=== PATIENT | male | born 1980 | race African-American/Black ===

== ENCOUNTER 2016-10-29 09:19 | Emergency (ER) | payer SELFPAY ==
[~2016-10-29] VITALS: Ht 170.2 cm; Wt 93.0 kg
[~2016-10-29 09:19] MED LIST: INSU100V13 SQ; METF500T4 PO
[2016-10-29] MEDS ORDERED: ONDANSETRON PF 4 MG/2 ML VIAL. IV ONE (10:15)
[2016-10-29] MEDS ORDERED: LIDO:MAALOX:DONNATAL 1:1:1 15 ML SINGLE DOSE SWSW ONE (10:15)
[2016-10-29 10:40] LABS: BASO % 0 % (0-3); EOS % 2 % (0-3); HEMATOCRIT 42.9 % (39.0-53.0); HEMOGLOBIN 14.6 g/dL (13.0-17.5); LYMPH # 2.9 x10^3/uL (1.0-4.8); LYMPH % 26 % (24-48); MEAN CORPUSCULAR HEMOGLOBIN 32 pg (25-35); MEAN CORPUSCULAR HGB CONC 34 g/dL (31-37); MEAN CORPUSCULAR VOLUME 94 fL (79-100); MONO % 9 % (0-9); NEUT % 63 % (31-73); PLATELET COUNT 243 x10^3/uL (140-400); RED BLOOD COUNT 4.58 x10^6/uL (4.30-5.70); RED CELL DISTRIBUTION WIDTH 13.4 % (11.5-14.5)
[2016-10-29 10:52] LABS: CALCIUM 8.5 mg/dL (8.5-10.1); CREATININE 1.1 mg/dL (0.7-1.3); GFR 92.2
[2016-10-29 10:59] LABS: ALBUMIN 3.6 g/dL (3.4-5.0); TOTAL PROTEIN 7.2 g/dL (6.4-8.2)
[2016-10-29 11:15] LABS: BILIRUBIN,URINE NEGATIVE (NEG); GLUCOSE,URINE NEGATIVE (NEG); NITRITE,URINE NEGATIVE (NEG); PROTEIN,URINE 30 mg/dL (NEG-TRACE)
[2016-10-29 11:18] LABS: BARBITURATES NEG (NEG); BENZODIAZEPINES NEG (NEG); CANNABINOIDS POS (NEG); COCAINE NEG (NEG); ETHANOL, URINE NEG (NEG); METHADONE NEG (NEG); OPIATES NEG (NEG); PHENCYCLIDINE NEG (NEG)
--- NOTE | 2016-10-29 11:20 | RAD ---
ACUTE ABDOMEN SERIES Clinical Indication: Abdominal pain and nausea for 3 days. Comparison: April 27, 2016. Technique: Portable upright AP view of the chest and upright and supine AP views of the abdomen are obtained. Findings: No focal consolidation, pleural effusion or pneumothorax is seen. Cardiomediastinal silhouette is within normal limits of size. No intra-abdominal free air or air-fluid levels are seen on the upright view. No dilated bowel loops are seen to suggest obstruction. Some formed fecal material is present. No significant renal calculi seen. Visualized osseous structures and surrounding soft tissues of the chest and abdomen demonstrate no acute finding. IMPRESSION: No radiographic evidence of an acute cardiopulmonary process. Nonobstructive appearing bowel gas pattern.
[2016-10-29 11:23] LABS: BACTERIA,URINE 0 /HPF (0-FEW); RBC,URINE 0 /HPF (0-2); WBC,URINE 0 /HPF (0-4)
[2016-10-29 11:33] VITALS: BP 140/91
[2016-10-29] MEDS ORDERED: ONDA4TAB7 PO (12:00)
--- NOTE | 2016-10-29 12:12 | EKG ---
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
--- NOTE | 2016-10-29 14:01 | ED.ADGEN ---
Past Medical History Past Medical History: Depression, Diabetes-Type II, Other Additional Past Medical Histor: BORDERLINE HTN Past Surgical History: No Surgical History Alcohol Use: None Drug Use: Marijuana Adult General Chief Complaint Chief Complaint: ABDOMINAL PAIN HPI HPI Patient is a 36 year old man, history of hypertension, type 2 diabetes mellitus that is diet controlled, depression, who presents to the emergency department with complaint of abdominal pain and constipation. Patient states that he began feeling nauseous last night, he states that he has not had developed for the past 2 days. States that he is experiencing cramping abdominal pain. No vomiting, no diarrhea, states the pain is located in the upper quadrants is admitted in the middle of his abdomen. He has not taken any medications prior to coming to the ED. Denies any sick contacts or bad food exposures. 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 No fevers or chills, no weakness, numbness or tingling, no chest pain or shortness of breath. Patient states that his diabetes is diet- controlled, Accu-Chek is 161 upon arrival to the emergency department. Patient concerned that his sugar was high, causing the pain. Review of Systems Review of Systems Constitutional: Denies fever or chills. [] Eyes: Denies change in visual acuity. [] HENT: Denies nasal congestion or sore throat. [] Respiratory: Denies cough or shortness of breath. [] Cardiovascular: Denies chest pain or edema. [] GI: Cramping abdominal pain associated with nausea, no vomiting, no bloody stools or diarrhea. Positive for constipation. : Denies dysuria. [] Musculoskeletal: Denies back pain or joint pain. [] Integument: Denies rash. [] Neurologic: Denies headache, focal weakness or sensory changes. [] Endocrine: Denies polyuria or polydipsia. [] Lymphatic: Denies swollen glands. [] Psychiatric: Denies depression or anxiety. [] Current Medications Current Medications Current Medications Medications (Trade) Dose Ordered Sig/Jennifer Start Time Stop Time Status Last Admin Dose Admin Multi-Ingredient Mouthwash/Gargle (Gi Cocktail Single Dose) 15 ml 1X ONCE 10/29/16 10:15 10/29/16 10:16 DC 10/29/16 10:28 15 ML Ondansetron HCl (Zofran) 4 mg 1X ONCE 10/29/16 10:15 10/29/16 10:16 DC 10/29/16 10:29 4 MG Allergies Allergies Allergies Coded Allergies Type Severity Reaction Last Updated Verified No Known Drug Allergies 12/09/15 No Physical Exam Physical Exam Constitutional: Well developed, well nourished, no acute distress, non-toxic appearance. [] HENT: Normocephalic, atraumatic, bilateral external ears normal, oropharynx moist, no oral exudates, nose normal. [] Eyes: PERRLA, EOMI, conjunctiva normal, no discharge. [] Neck: Normal range of motion, no tenderness, supple, no stridor. [] Cardiovascular:Heart rate regular rhythm, no murmur [] Lungs & Thorax: Bilateral breath sounds clear to auscultation [] Abdomen: Bowel sounds normal, soft, no tenderness, no masses, no pulsatile masses. [] Skin: Warm, dry, no erythema, no rash. [] Back: No tenderness, no CVA tenderness. [] Extremities: No tenderness, no cyanosis, no clubbing, ROM intact, no edema. [] Neurologic: Alert and oriented X 3, normal motor function, normal sensory function, no focal deficits noted. [] Psychologic: Affect normal, judgement normal, mood normal. [] Current Patient Data Vital Signs Vital Signs Date Time Temp Pulse Resp B/P Pulse Ox O2 Delivery O2 Flow Rate FiO2 10/29/16 10:05 90 18 149/84 97 Room Air 10/29/16 09:28 98.2 98.2 Lab Values Laboratory Tests Test 10/29/16 09:28 10/29/16 10:05 10/29/16 10:45 Glucose (Fingerstick) 161mg/dL (70-99) H White Blood Count 11.0x10^3/uL (4.0-11.0) Red Blood Count 4.58x10^6/uL (4.30-5.70) Hemoglobin 14.6g/dL (13.0-17.5) Hematocrit 42.9% (39.0-53.0) Mean Corpuscular Volume 94fL (79-100) Mean Corpuscular Hemoglobin 32pg (25-35) Mean Corpuscular Hemoglobin Concent 34g/dL (31-37) Red Cell Distribution Width 13.4% (11.5-14.5) Platelet Count 243x10^3/uL (140-400) Neutrophils (%) (Auto) 63% (31-73) Lymphocytes (%) (Auto) 26% (24-48) Monocytes (%) (Auto) 9% (0-9) Eosinophils (%) (Auto) 2% (0-3) Basophils (%) (Auto) 0% (0-3) Neutrophils # (Auto) 6.9x10^3uL (1.8-7.7) Lymphocytes # (Auto) 2.9x10^3/uL (1.0-4.8) Monocytes # (Auto) 0.9x10^3/uL (0.0-1.1) Eosinophils # (Auto) 0.2x10^3/uL (0.0-0.7) Basophils # (Auto) 0.0x10^3/uL (0.0-0.2) Sodium Level 142mmol/L (136-145) Potassium Level 4.0mmol/L (3.5-5.1) Chloride Level 105mmol/L (98-107) Carbon Dioxide Level 26mmol/L (21-32) Anion Gap 11 (6-14) Blood Urea Nitrogen 15mg/dL (8-26) Creatinine 1.1mg/dL (0.7-1.3) Estimated GFR (Cockcroft-Gault) 92.2 BUN/Creatinine Ratio 14 (6-20) Glucose Level 138mg/dL (70-99) H Calcium Level 8.5mg/dL (8.5-10.1) Total Bilirubin 1.0mg/dL (0.2-1.0) Aspartate Amino Transferase (AST) 21U/L (15-37) Alanine Aminotransferase (ALT) 31U/L (16-63) Alkaline Phosphatase 71U/L (46-116) Total Protein 7.2g/dL (6.4-8.2) Albumin 3.6g/dL (3.4-5.0) Albumin/Globulin Ratio 1.0 (1.0-1.7) Lipase 121U/L (73-393) Urine Collection Type Unknown Urine Color Yellow Urine Clarity Clear Urine pH 6.0 Urine Specific [place] 1.025 Urine Protein 30mg/dL (NEG-TRACE) Urine Glucose (UA) Negativemg/dL (NEG) Urine Ketones (Stick) Negativemg/dL (NEG) Urine Blood Negative (NEG) Urine Nitrite Negative (NEG) Urine Bilirubin Negative (NEG) Urine Urobilinogen Dipstick 1.0mg/dL (0.2 mg/dL) Urine Leukocyte Esterase Negative (NEG) Urine RBC 0/HPF (0-2) Urine WBC 0/HPF (0-4) Urine Squamous Epithelial Cells None/LPF Urine Amorphous Sediment Present/HPF Urine Bacteria 0/HPF (0-FEW) Urine Opiates Screen Neg (NEG) Urine Methadone Screen Neg (NEG) Urine Barbiturates Neg (NEG) Urine Phencyclidine Screen Neg (NEG) Urine Amphetamine/Methamphetamine Neg (NEG) Urine Benzodiazepines Screen Neg (NEG) Urine Cocaine Screen Neg (NEG) Urine Cannabinoids Screen Pos (NEG) Urine Ethyl Alcohol Neg (NEG) Laboratory Tests 10/29/16 10:05 Laboratory Tests 10/29/16 10:05 EKG EKG ECG: [] Rhythm strip: Heart rate 90 bpm, sinus rhythm, no ectopy. As interpreted by me. Radiology/Procedures Radiology/Procedures [][facility] [address] [place] [address] IMAGING REPORT Signed PATIENT: FLORENCE SALGUERO ACCOUNT: [id number] : 1980 LOCATION: ER AGE: 36 SEX: M EXAM STATUS: REG ER ORD. PHYSICIAN: GILBERTO STEVENS DO REASON: abd pain PROCEDURE: ACUTE ABDOMEN SERIES ACUTE ABDOMEN SERIES Clinical Indication: Abdominal pain and nausea for 3 days. Comparison: April 27, 2016. Technique: Portable upright AP view of the chest and upright and supine AP views of the abdomen are obtained. Findings: No focal consolidation, pleural effusion or pneumothorax is seen. Cardiomediastinal silhouette is within normal limits of size. No intra-abdominal free air or air-fluid levels are seen on the upright view. No dilated bowel loops are seen to suggest obstruction. Some formed fecal material is present. No significant renal calculi seen. Visualized osseous structures and surrounding soft tissues of the chest and abdomen demonstrate no acute finding. IMPRESSION: No radiographic evidence of an acute cardiopulmonary process. Nonobstructive appearing bowel gas pattern. DICTATED and SIGNED BY: JANEL BONILLA MD DATE: 10/29/16 1116 CC: GILBERTO STEVENS DO; MARCEL DINH MD ~ Course & Med Decision Making Course & Med Decision Making Pertinent Labs and Imaging studies reviewed. (See chart for details) Patient's laboratory studies are reveal any evidence acutely concerning findings , x-rays consistent with constipation. No evidence of obstruction. On reevaluation after receiving GI cocktail, patient is resting comfortably. Nausea is resolved. Did discuss importance of high-fiber diet, and stay well- hydrated with patient, patient voiced understanding and agreement. Discharged home with recognition the stated, with clear and detailed return instructions. Dragon Disclaimer Dragon Disclaimer This electronic medical record was generated, in whole or in part, using a voice recognition dictation system. Departure Impression: Primary Impression: Constipation Additional Impressions: Nausea Abdominal pain Disposition: 01 HOME, SELF-CARE Condition: IMPROVED Scripts Ondansetron Hcl (Zofran)4 Mg Tablet1 Tab PO Q8HRS PRN NAUSEA #12 TAB Prov:GILBERTO STEVENS DO 10/29/16 Problem Qualifiers GILBERTO STEVENS DO Oct 29, 2016 14:01
== END 2016-10-29 12:25 | disposition home or self-care (01) ==
LOC: ER 09:19
DX: K59.00 Constipation, unspecified (principal); I10 Essential (primary) hypertension; F32.9 Major depressive disorder, single episode, unspecified; E11.9 Type 2 diabetes mellitus without complications; F12.10 Cannabis abuse, uncomplicated
CPT/HCPCS: 36415; 74022; 80053; 80305; 80320; 81001; 82947; 83690; 85027; 93005; 96374; 99285; J2405; G0481

== ENCOUNTER 2018-02-05 06:35 | Emergency (ER) | payer SELFPAY ==
[2018-02-05] MEDS: ORPHENADRINE CITRATE 60 MG/2 ML VIAL. IM (07:37)
[2018-02-05] MEDS: KETOROLAC 60 MG/2 ML INJ. IM (07:37)
[2018-02-05] MEDS: LIDOCAINE (700MG/PATCH) PATCH. TD (07:37)
== END 2018-02-05 07:50 | disposition home or self-care (01) ==
LOC: ER 06:35
DX: S29.012A Strain of muscle and tendon of back wall of thorax, initial encounter (principal); M54.12 Radiculopathy, cervical region; E11.9 Type 2 diabetes mellitus without complications; X58.XXXA Exposure to other specified factors, initial encounter; Y93.89 Activity, other specified; Y92.89 Other specified places as the place of occurrence of the external cause; Y99.8 Other external cause status
CPT/HCPCS: 96372; 99284; J1885; J2360

== ENCOUNTER 2019-01-26 16:18 | Emergency (ER) | payer SELFPAY ==
[~2019-01-26] VITALS: Ht 167.6 cm; Wt 97.5 kg
[~2019-01-26 16:18] MED LIST changes: +INSU100V3 SQ; +LISI2.5T PO; +METF500T16 PO; -METF500T4 PO; +NAPR-514 PO; +ONDA4TAB7 PO; +ORPH100T PO
[2019-01-26 16:57] VITALS: BP 133/87
--- NOTE | 2019-01-26 17:22 | RAD ---
SHOULDER BILAT 2+V History: Pain after a fall. 3 view right shoulder No evidence of acute fracture. No aggressive bone destruction. Joint spaces intact without dislocation. Three-view left shoulder No evidence of acute fracture. Joint spaces intact without dislocation. The outer left clavicle demonstrates ill-definition of the subchondral margin, could indicate resorption or osteolysis. IMPRESSION: 1. No evidence of acute fracture or dislocation of either shoulder. 2. Ill-definition of the subchondral bone at the outer left clavicle. This is compatible with bone resorption or osteolysis. This can be seen with repetitive stress injury or posttraumatic osteolysis, assuming there is not clinical concern for infectious etiology. Electronically signed by: Miguelito Palacios MD (01/26/2019 5:19 PM) [facility]
--- NOTE | 2019-01-26 18:18 | RAD ---
CT C-Spine without contrast: Clinical History: Technique: Axial helical images of the cervical spine were obtained without contrast, axial coronal and sagittal reconstruction was performed. Findings: There is no loss of vertebral body stature. There is no prevertebral soft tissue swelling. The vertebral bodies are well aligned. The C1-C2 relationship is normal. The visualized osseous structures appear normal. There is straightening of the normal cervical lordosis which can be positional or can be secondary to muscle spasm. Evaluation of the central canal is limited without contrast. There is facet arthropathy at C3-C4 on the left. Impression: Straightening of the normal cervical doses could be positional or could be secondary to muscle spasm. Otherwise no CT evidence of acute fracture or malalignment. Clinical correlation suggested. PQRS Compliance Statement: One or more of the following individualized dose reduction techniques were utilized for this examination: 1. Automated exposure control 2. Adjustment of the mA and/or kV according to patient size 3. Use of iterative reconstruction technique Electronically signed by: Anthony Molina III, MD (01/26/2019 6:15 PM) [facility]
[2019-01-26] MEDS ORDERED: DICL50TA4 PO (18:36)
[2019-01-26] MEDS ORDERED: CYCL10TA2 PO (18:36)
--- NOTE | 2019-01-26 18:36 | PHYS DOC ---
Past Medical History Past Medical History: Diabetes-Type II Additional Past Medical Histor: BORDERLINE HTN (CRISTIANOAMANDA APRN) Past Surgical History: No Surgical History (AMANDA QUINONEZ APRN) Alcohol Use: None Drug Use: None (CRISTIANOAMANDA APRN) Adult General Chief Complaint Chief Complaint: BACK PAIN - NO INJURY HPI HPI Patient is a 38 year old male with history of diabetes type 2, pre- hypertension, who presents to the ED today complaining of 9 out of 10 lateral shoulder pain as well as neck pain that began 4 days ago after he fell, he states he was playing with his daughter when he tripped and fell. Denies any loss of consciousness, denies hitting his head on the ground. States the pain is worse on touching the neck. Denies anything specifically relief. Describes the pain as sharp and intermittent. (TIMAMANDA Lawrence APRN) Review of Systems Review of Systems Constitutional: Denies fever or chills [] Eyes: Denies change in visual acuity, redness, or eye pain [] HENT: Denies nasal congestion or sore throat [] Respiratory: Denies cough or shortness of breath [] Cardiovascular: No additional information not addressed in HPI [] GI: Denies abdominal pain, nausea, vomiting, bloody stools or diarrhea [] : Denies dysuria or hematuria [] Musculoskeletal: Reports neck pain, bilateral shoulder pain Integument: Denies rash or skin lesions [] Neurologic: Denies headache, focal weakness or sensory changes [] All other systems were reviewed and found to be within normal limits, except as documented in this note. (AMANDA QUINONEZ APRN) Allergies Allergies Allergies Coded Allergies Type Severity Reaction Last Updated Verified No Known Drug Allergies 12/09/15 No (WOODROW FRANCIS MD) Physical Exam Physical Exam Constitutional: Well developed, well nourished, no acute distress, non-toxic appearance. [] HENT: Normocephalic, atraumatic, bilateral external ears normal, oropharynx moist, no oral exudates, nose normal. [] Eyes: PERRLA, EOMI, conjunctiva normal, no discharge. [] Neck: Normal range of motion, diffuse paraspinal muscle tenderness to bilateral cervical spine, no midline cervical spine tenderness, supple, no stridor. [] Cardiovascular:Heart rate regular rhythm, no murmur [] Lungs & Thorax: Bilateral breath sounds clear to auscultation [] Abdomen: Bowel sounds normal, soft, no tenderness, no masses, no pulsatile masses. [] Skin: Warm, dry, no erythema, no rash. [] Back: No tenderness, no CVA tenderness. [] Extremities: No tenderness, no cyanosis, no clubbing, ROM intact, no edema. [] Neurologic: Alert and oriented X 3, normal motor function, normal sensory function, no focal deficits noted. [] Psychologic: Affect normal, judgement normal, mood normal. [] (AMANDA QUINONEZ APRN) Current Patient Data Vital Signs Vital Signs Date Time Temp Pulse Resp B/P (MAP) Pulse Ox O2 Delivery O2 Flow Rate FiO2 01/26/19 16:57 98.2 82 18 133/87 (102) 96 Room Air 98.2 (WOODROW FRANCIS MD) EKG EKG [] (AMANDA QUINONEZ APRN) Radiology/Procedures Radiology/Procedures []PROCEDURE: SHOULDER BILAT 2+V SHOULDER BILAT 2+V History: Pain after a fall. 3 view right shoulder No evidence of acute fracture. No aggressive bone destruction. Joint spaces intact without dislocation. Three-view left shoulder No evidence of acute fracture. Joint spaces intact without dislocation. The outer left clavicle demonstrates ill-definition of the subchondral margin, could indicate resorption or osteolysis. IMPRESSION: 1. No evidence of acute fracture or dislocation of either shoulder. 2. Ill-definition of the subchondral bone at the outer left clavicle. This is compatible with bone resorption or osteolysis. This can be seen with repetitive stress injury or posttraumatic osteolysis, assuming there is not clinical concern for infectious etiology. Electronically signed by: Miguelito Palacios MD (01/26/2019 5:19 PM) [facility] DICTATED and SIGNED BY: MIGUELITO PALACIOS MD DATE: 01/26/19 1719 PROCEDURE: CT CERVICAL SPINE WO CONTRAST CT C-Spine without contrast: Clinical History: Technique: Axial helical images of the cervical spine were obtained without contrast, axial coronal and sagittal reconstruction was performed. Findings: There is no loss of vertebral body stature. There is no prevertebral soft tissue swelling. The vertebral bodies are well aligned. The C1-C2 relationship is normal. The visualized osseous structures appear normal. There is straightening of the normal cervical lordosis which can be positional or can be secondary to muscle spasm. Evaluation of the central canal is limited without contrast. There is facet arthropathy at C3-C4 on the left. Impression: Straightening of the normal cervical doses could be positional or could be secondary to muscle spasm. Otherwise no CT evidence of acute fracture or malalignment. Clinical correlation suggested. RS Compliance Statement: One or more of the following individualized dose reduction techniques were utilized for this examination: 1. Automated exposure control 2. Adjustment of the mA and/or kV according to patient size 3. Use of iterative reconstruction technique Electronically signed by: Susannah Naylor III, MD (01/26/2019 6:15 PM) [facility] DICTATED and SIGNED BY: SUSANNAH NAYLOR III, MD DATE: 01/26/191814 (AMANDA QUINONEZ APRN) Course & Med Decision Making Course & Med Decision Making Pertinent Labs and Imaging studies reviewed. (See chart for details) This is a 38-year-old male patient presenting to the ED today complaining of bi lateral shoulder pain and neck pain status post falling 4 days ago. No loss of consciousness. Did not hit the head on the ground. CT of the cervical spine is negative for any acute findings. Bilateral shoulder x-rays were negative for any acute findings, noted for Osteolysis, bone resorption or osteolysis. This can be seen with repetitive stress injury or posttraumatic osteolysis, assuming there is not clinical concern for infectious etiology. There is no signs of infection on the left shoulder. Discussed results of patient, he will follow up with PCP as well as orthopedic doctor provided. (AMANDA QUINONEZ APRN) Course & Med Decision Making Staff Physician Addendum: I was working in the ER during the course of this patient's visit. I was available for consultation as needed, but I was not directly involved in the care of this patient. (WOODROW FRANCIS MD) Dragon Disclaimer Dragon Disclaimer This electronic medical record was generated, in whole or in part, using a voice recognition dictation system. 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 Please follow-up with your own doctor or the provided orthopedic doctor for this. It's nothing acute. Take the prescribed medicine as needed for pain. Scripts Cyclobenzaprine Hcl (CYCLOBENZAPRINE HCL) 10 Mg Tablet 1 TAB PO TID, #30 TAB Prov: AMANDA QUINONEZ APRN 01/26/19 Diclofenac Sodium (DICLOFENAC SODIUM) 50 Mg Tablet.dr 1 TAB PO BID, #20 TAB 0 Refills Prov: AMANDA QUINONEZ APRN 01/26/19 Problem Qualifiers Primary Impression: Fall Encounter type: initial encounter Qualified Codes: W19.XXXA - Unspecified fall, initial encounter Additional Impressions: Contusion of right shoulder Encounter type: initial encounter Qualified Codes: S40.011A - Contusion of right shoulder, initial encounter Bilateral shoulder pain Chronicity: acute Qualified Codes: M25.511 - Pain in right shoulder; M25.512 - Pain in left shoulder AMANDA QUINONEZ APRN Jan 26, 2019 18:36 WOODROW FRANCIS MD Jan 27, 2019 04:56
== END 2019-01-26 18:53 | disposition home or self-care (01) ==
LOC: ER 16:18
DX: S40.011A Contusion of right shoulder, initial encounter (principal); M89.512 Osteolysis, left shoulder; M25.512 Pain in left shoulder; M54.2 Cervicalgia; E11.9 Type 2 diabetes mellitus without complications; W01.0XXA Fall on same level from slipping, tripping and stumbling without subsequent striking against object, initial encounter; Y93.89 Activity, other specified; Y92.89 Other specified places as the place of occurrence of the external cause; Y99.8 Other external cause status
CPT/HCPCS: 72125; 73030; 99284

== ENCOUNTER 2019-11-03 11:22 | Emergency (ER) | payer SELFPAY ==
[~2019-11-03] VITALS: Ht 167.6 cm; Wt 95.4 kg
[~2019-11-03 11:22] MED LIST changes: +CYCL10TA2 PO; +DICL50TA4 PO
[2019-11-03] MEDS ORDERED: IV NORMAL SALINE 1000ML BAG 1,000 ML IV ONE (12:00)
[2019-11-03 12:19] LABS: BASO # 0.1 x10^3/uL (0.0-0.2); BASO % 1 % (0-3); EOS # 0.1 x10^3/uL (0.0-0.7); EOS % 1 % (0-3); HEMATOCRIT 44.6 % (39.0-53.0); HEMOGLOBIN 15.4 g/dL (13.0-17.5); LYMPH # 2.7 x10^3/uL (1.0-4.8); LYMPH % 19 % (24-48); MEAN CORPUSCULAR HEMOGLOBIN 33 pg (25-35); MEAN CORPUSCULAR HGB CONC 35 g/dL (31-37); MEAN CORPUSCULAR VOLUME 95 fL (79-100); MONO # 0.8 x10^3/uL (0.0-1.1); MONO % 5 % (0-9); NEUT # 10.7 x10^3/uL (1.8-7.7); NEUT % 75 % (31-73); PLATELET COUNT 299 x10^3/uL (140-400); RED CELL DISTRIBUTION WIDTH 13.3 % (11.5-14.5); WHITE BLOOD COUNT 14.4 x10^3/uL (4.0-11.0)
[2019-11-03 12:25] LABS: CALCIUM 9.1 mg/dL (8.5-10.1); CREATININE 1.1 mg/dL (0.7-1.3); GFR 90.6; POTASSIUM 4.6 mmol/L (3.5-5.1)
[2019-11-03 12:30] LABS: ALBUMIN 3.5 g/dL (3.4-5.0); ALBUMIN/GLOBULIN RATIO 1.1 (1.0-1.7); TOTAL BILIRUBIN 0.7 mg/dL (0.2-1.0); TOTAL PROTEIN 6.6 g/dL (6.4-8.2)
--- NOTE | 2019-11-03 12:39 | PHYS DOC ---
Past Medical History Past Medical History: Diabetes-Type II Additional Past Medical Histor: BORDERLINE HTN Past Surgical History: No Surgical History Smoking Status: Never Smoker Alcohol Use: Occasionally Drug Use: None General Adult EDM: Chief Complaint: MULTIPLE COMPLAINTS HPI: HPI: Patient is a 39 year old male who presents with left arm tingling for the last couple months. Patient has been out of his regular insulin for quite some time and states he cannot remember but he then bought some [employer] insulin a month ago and states he cannot remember how much insulin he is was to be taking in the first place so about 3 times a week he will take 5 units. He states that he will take his blood sugars and they will be anywhere from 300 to the 500s. He states last week he had a fruity flavored taste in his mouth and his urine " smelled like cocoa puffs cereal". He states this morning his sugar was in the 500s and so he took 5 units of " [employer] insulin" before coming. Patient's glucose is 331 here in the ED. Patient states he also has left-sided sharp chest pains that come and go for the last few months. Patient states that he does smoke cigars but he does not know how many he smokes a day and he states because he smokes cigars it is why he does not know how many he smokes a day. Patient states he currently has no pain, chest pain, shortness of breath, headache, dizziness, LOC, abdominal pain, nausea, vomiting, diarrhea, excessive thirst, excessive urination, fevers, visual changes. Patient states that he cannot obtain her an erection for the last 2 months. Review of Systems: Review of Systems: Cardiovascular: Left intermittent sharp chest pain or denies edema. [] : Denies dysuria. Cannot obtain a erection for the last 2 months [] Neurologic: Denies headache, focal weakness or sensory changes. Left arm tingling [] Heart Score: HEART Score for Chest Pain: HEART Score for Chest Pain Response (Comments) Value History Slighlty/Non-Suspicious 0 ECG Normal 0 Age < 45 0 Risk Factors 1 or 2 Risk Factors 1 Troponin < Normal Limit 0 Total 1 Risk Factors: Risk Factors: DM, Current or recent (<one month) smoker, HTN, HLP, family history of CAD, obesity. Risk Scores: Score 0 - 3: 2.5% MACE over next 6 weeks - Discharge Home Score 4 - 6: 20.3% MACE over next 6 weeks - Admit for Clinical Observation Score 7 - 10: 72.7% MACE over next 6 weeks - Early Invasive Strategies Current Medications: Current Medications Medications (Trade) Dose Ordered Sig/Jennifer Start Time Stop Time Status Last Admin Dose Admin Sodium Chloride 1,000 ml @ 1,000 mls/hr 1X ONCE 11/03/19 12:00 11/03/19 12:59 Allergies: Allergies: Allergies Coded Allergies Type Severity Reaction Last Updated Verified No Known Drug Allergies 12/09/15 No Physical Exam: PE: Constitutional: Well developed, well nourished, no acute distress, non-toxic appearance. [] HENT: Normocephalic, atraumatic, bilateral external ears normal, oropharynx moist, no oral exudates, nose normal. [] Eyes: PERRLA, EOMI, conjunctiva normal, no discharge. [] Neck: Normal range of motion, no tenderness, supple, no stridor. [] Cardiovascular:Heart rate regular rhythm, no murmur [] Lungs & Thorax: Bilateral breath sounds clear to auscultation [] Abdomen: Bowel sounds normal, soft, no tenderness, no masses, no pulsatile masses. [] Skin: Warm, dry, no erythema, no rash. [] Back: No tenderness, no CVA tenderness. [] Extremities: No tenderness, no cyanosis, no clubbing, ROM intact, no edema. [] Neurologic: Alert and oriented X 3, normal motor function, normal sensory function, no focal deficits noted. [] Psychologic: Affect normal, judgement normal, mood normal. Normal physical exam [] Current Patient Data: Labs: Laboratory Tests Test 11/03/19 11:47 11/03/19 11:51 Glucose (Fingerstick) 331 mg/dL (70-99) H White Blood Count 14.4 x10^3/uL (4.0-11.0) H Red Blood Count 4.70 x10^6/uL (4.30-5.70) Hemoglobin 15.4 g/dL (13.0-17.5) Hematocrit 44.6 % (39.0-53.0) Mean Corpuscular Volume 95 fL (79-100) Mean Corpuscular Hemoglobin 33 pg (25-35) Mean Corpuscular Hemoglobin Concent 35 g/dL (31-37) Red Cell Distribution Width 13.3 % (11.5-14.5) Platelet Count 299 x10^3/uL (140-400) Neutrophils (%) (Auto) 75 % (31-73) H Lymphocytes (%) (Auto) 19 % (24-48) L Monocytes (%) (Auto) 5 % (0-9) Eosinophils (%) (Auto) 1 % (0-3) Basophils (%) (Auto) 1 % (0-3) Neutrophils # (Auto) 10.7 x10^3/uL (1.8-7.7) H Lymphocytes # (Auto) 2.7 x10^3/uL (1.0-4.8) Monocytes # (Auto) 0.8 x10^3/uL (0.0-1.1) Eosinophils # (Auto) 0.1 x10^3/uL (0.0-0.7) Basophils # (Auto) 0.1 x10^3/uL (0.0-0.2) Sodium Level 137 mmol/L (136-145) Potassium Level 4.6 mmol/L (3.5-5.1) Chloride Level 100 mmol/L (98-107) Carbon Dioxide Level 29 mmol/L (21-32) Anion Gap 8 (6-14) Blood Urea Nitrogen 9 mg/dL (8-26) Creatinine 1.1 mg/dL (0.7-1.3) Estimated GFR (Cockcroft-Gault) 90.6 BUN/Creatinine Ratio 8 (6-20) Glucose Level 390 mg/dL (70-99) H Calcium Level 9.1 mg/dL (8.5-10.1) Total Bilirubin 0.7 mg/dL (0.2-1.0) Aspartate Amino Transferase (AST) 14 U/L (15-37) L Alanine Aminotransferase (ALT) 21 U/L (16-63) Alkaline Phosphatase 106 U/L (46-116) Total Protein 6.6 g/dL (6.4-8.2) Albumin 3.5 g/dL (3.4-5.0) Albumin/Globulin Ratio 1.1 (1.0-1.7) Laboratory Tests 11/03/19 11:51 Laboratory Tests 11/03/19 11:51 Vital Signs: Vital Signs Date Time Temp Pulse Resp B/P (MAP) Pulse Ox O2 Delivery O2 Flow Rate FiO2 11/03/19 11:39 98.5 85 18 146/82 (103) 97 Room Air 98.5 EKG: EK and read by Dr. Alcaraz as sinus rhythm and no STEMI [] Radiology/Procedures: Radiology/Procedures: [] Impression: [facility] [address] [place] [address] IMAGING REPORT Signed PATIENT: FLORENCE SALGUERO ACCOUNT: [id number] : 1980 LOCATION: ER AGE: 39 SEX: M EXAM STATUS: REG ER ORD. PHYSICIAN: ANJU ZAMORANO APRN REASON: chest pain PROCEDURE: CHEST PA & LATERAL CHEST PA LATERAL History: Chest pain. Comparison: Image from 2017, without report. FINDINGS: Cardiomediastinal silhouette is stable and not enlarged. No evidence of pneumothorax. No evidence of pleural effusion. No focal infiltrate is identified. Bones appear grossly intact. IMPRESSION: No evidence of consolidating infiltrate. Electronically signed by: Miguelito Palacios MD (11/03/2019 1:04 PM) [id number] DICTATED and SIGNED BY: MIGUELITO PALACIOS MD DATE: 11/03/19 1304 Course & Med Decision Making: Course & Med Decision Making Pertinent Labs and Imaging studies reviewed. (See chart for details) Patient states he has intact sensation in all extremities that are equal. He has equal strength and horseradish grinder in bilateral upper extremities and equal strength in bilateral lower extremities. Ambulatory with a steady gait. Speaks in full clear sentences. No extremity edema. Lungs are clear to auscultation all lobes. Moves all extremities equally. PERRLA. With fluids and patient drinking water his glucose came down to 250. No insulin was needed for that. Patient is hemodynamically stable. Vital signs remained stable. Patient has no other complaints and remains in no pain. Patient will be discharged home and to continue taking his insulin that he has at home on a sliding scale. Patient is to follow-up with a primary care provider soon as possible. I have discussed the patient findings and care plan with Dr Alcaraz who is in agreement. [] Ignacio Disclaimer: Ignacio Disclaimer: This electronic medical record was generated, in whole or in part, using a voice recognition dictation system. Departure Departure Impression: Primary Impression: Hyperglycemia Additional Impression: Erectile dysfunction Qualified Codes: N52.9 - Male erectile dysfunction, unspecified Disposition: HOME, SELF-CARE Condition: STABLE Referrals: NO PCP (PCP) Patient Instructions: 1800 Calorie Diet for Diabetes Meal Planning, Diabetes, Eating Away From Home, Diabetic Neuropathy, Hyperglycemia, [id number] Additional Instructions: Follow-up with a primary care provider as soon as possible. Drink plenty of fluids. Eat a diabetic diet. Stop smoking marijuana. ANJU ZAMORANO CHEMICAL PRODUCTION ENGINEER Nov 03, 2019 12:39
--- NOTE | 2019-11-03 12:55 | EKG ---
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
--- NOTE | 2019-11-03 13:07 | RAD ---
CHEST PA LATERAL History: Chest pain. Comparison: Image from 2017, without report. FINDINGS: Cardiomediastinal silhouette is stable and not enlarged. No evidence of pneumothorax. No evidence of pleural effusion. No focal infiltrate is identified. Bones appear grossly intact. IMPRESSION: No evidence of consolidating infiltrate. Electronically signed by: Miguelito Palacios MD (11/03/2019 1:04 PM) [id number]
[2019-11-03 14:21] LABS: BILIRUBIN,URINE NEGATIVE (NEG); CLARITY,URINE CLEAR; COLOR,URINE YELLOW; NITRITE,URINE NEGATIVE (NEG); PROTEIN,URINE 100 mg/dL (NEG-TRACE)
[2019-11-03 14:28] LABS: BARBITURATES NEG (NEG); BENZODIAZEPINES NEG (NEG); CANNABINOIDS POS (NEG); COCAINE NEG (NEG); METHADONE NEG (NEG); OPIATES NEG (NEG); PHENCYCLIDINE NEG (NEG)
[2019-11-03 14:29] LABS: BACTERIA,URINE 0 /HPF (0-FEW); RBC,URINE 0 /HPF (0-2); SQUAMOUS EPITHELIAL CELL,UR OCC /LPF; WBC,URINE 0 /HPF (0-4)
[2019-11-03 14:32] LABS: AMPHETAMINE/METHAMPHETAMINE NEG (NEG)
[2019-11-03 15:07] VITALS: BP 123/74
== END 2019-11-03 15:30 | disposition home or self-care (01) ==
LOC: ER 11:22
DX: E11.65 Type 2 diabetes mellitus with hyperglycemia (principal); N52.9 Male erectile dysfunction, unspecified; R07.89 Other chest pain; R20.2 Paresthesia of skin
CPT/HCPCS: 36415; 71046; 80053; 80307; 81001; 82010; 82962; 84484; 85025; 93005; 99285; J7030

== ENCOUNTER 2019-11-12 22:31 | Emergency (ER) | payer SELFPAY ==
[~2019-11-12] VITALS: Ht 167.6 cm; Wt 95.5 kg
--- NOTE | 2019-11-12 22:57 | PHYS DOC ---
Past Medical History Past Medical History: Diabetes-Type II Additional Past Medical Histor: BORDERLINE HTN Past Surgical History: No Surgical History Smoking Status: Never Smoker Alcohol Use: Occasionally Drug Use: None General Adult EDM: Chief Complaint: RAPID HEART RATE HPI: HPI: 39-year-old male presents with a chief complaint of palpitations. Patient states around 2100 hrs. he took a tablet of Viagra shortly after he noticed his heart racing. Patient denied any associated chest pain. Patient's heart rate in the 140s. At the time of my examination patient's heart rate had improved to the 110s. EKG performed shows a heart rate of 117 sinus tachycardia no acute i schemic changes. Patient states this is the first time taking viagra. Patient admits to THC use-- denies alcohol meth or cocaine. Review of Systems: Review of Systems: Constitutional: Denies fever or chills. [] Eyes: Denies change in visual acuity. [] HENT: Denies nasal congestion or sore throat. [] Respiratory: Denies cough or shortness of breath. [] Cardiovascular: Denies chest pain or edema. [positive palpitations] GI: Denies abdominal pain, nausea, vomiting, bloody stools or diarrhea. [] : Denies dysuria. [] Musculoskeletal: Denies back pain or joint pain. [] Integument: Denies rash. [] Neurologic: Denies headache, focal weakness or sensory changes. [] Endocrine: Denies polyuria or polydipsia. [] Lymphatic: Denies swollen glands. [] Psychiatric: Denies depression or anxiety. [] Heart Score: Risk Factors: Risk Factors: DM, Current or recent (<one month) smoker, HTN, HLP, family history of CAD, obesity. Risk Scores: Score 0 - 3: 2.5% MACE over next 6 weeks - Discharge Home Score 4 - 6: 20.3% MACE over next 6 weeks - Admit for Clinical Observation Score 7 - 10: 72.7% MACE over next 6 weeks - Early Invasive Strategies Allergies: Allergies: Allergies Coded Allergies Type Severity Reaction Last Updated Verified No Known Drug Allergies 12/09/15 No Physical Exam: PE: Constitutional: Well developed, well nourished, no acute distress, non-toxic appearance. [] HENT: Normocephalic, atraumatic, bilateral external ears normal, oropharynx moist, no oral exudates, nose normal. [] Eyes: PERRLA, EOMI, conjunctiva normal, no discharge. [] Neck: Normal range of motion, no tenderness, supple, no stridor. [] Cardiovascular:tachycardia Lungs & Thorax: Bilateral breath sounds clear to auscultation [] Abdomen: Bowel sounds normal, soft, no tenderness, no masses, no pulsatile masses. [] Skin: Warm, dry, no erythema, no rash. [] Back: No tenderness, no CVA tenderness. [] Extremities: No tenderness, no cyanosis, no clubbing, ROM intact, no edema. [] Neurologic: Alert and oriented X 3, normal motor function, normal sensory function, no focal deficits noted. [] Psychologic: Affect normal, judgement normal, mood normal. [] EKG: EKG: []EKG performed at 2243 sinus tachycardia heart rate [address] elevations no ST depressions no acute [place] Radiology/Procedures: Radiology/Procedures: [] Course & Med Decision Making: Course & Med Decision Making Pertinent Labs and Imaging studies reviewed. (See chart for details) []Patient treated with NS 1L. Labs drawn and reviewed. EKG no acute ischemic changes. Suspect patients symptoms related to medication reaction and anxiety related to taking medications. Heart rate on monitor sinus tachy 104 bpm Patient continues to deny chest pain. Ignacio Disclaimer: Ignacio Disclaimer: This electronic medical record was generated, in whole or in part, using a voice recognition dictation system. Departure Departure Impression: Primary Impression: Tachycardia Additional Impression: Medication reaction Qualified Codes: T50.905A - Adverse effect of unspecified drugs, medicaments and biological substances, initial encounter Disposition: HOME, SELF-CARE Condition: IMPROVED Referrals: NO PCP (PCP) Patient Instructions: Nonspecific Tachycardia, Palpitations AKIRA RIBEIRO I DO Nov 12, 2019 22:57
[2019-11-12] MEDS ORDERED: IV NORMAL SALINE 1000ML BAG 1,000 ML IV ONE (23:00)
[2019-11-12 23:03] LABS: BASO # 0.1 x10^3/uL (0.0-0.2); BASO % 0 % (0-3); EOS # 0.1 x10^3/uL (0.0-0.7); EOS % 1 % (0-3); HEMOGLOBIN 15.8 g/dL (13.0-17.5); LYMPH # 3.7 x10^3/uL (1.0-4.8); LYMPH % 21 % (24-48); MEAN CORPUSCULAR HEMOGLOBIN 33 pg (25-35); MEAN CORPUSCULAR HGB CONC 34 g/dL (31-37); MEAN CORPUSCULAR VOLUME 95 fL (79-100); MONO # 1.2 x10^3/uL (0.0-1.1); MONO % 7 % (0-9); NEUT # 12.4 x10^3/uL (1.8-7.7); NEUT % 71 % (31-73); PLATELET COUNT 323 x10^3/uL (140-400); RED BLOOD COUNT 4.83 x10^6/uL (4.30-5.70); RED CELL DISTRIBUTION WIDTH 13.4 % (11.5-14.5); WHITE BLOOD COUNT 17.4 x10^3/uL (4.0-11.0)
[2019-11-12 23:09] LABS: CALCIUM 9.3 mg/dL (8.5-10.1); CREATININE 1.3 mg/dL (0.7-1.3); GFR 74.8; POTASSIUM 3.3 mmol/L (3.5-5.1)
[2019-11-12 23:14] LABS: ALBUMIN 3.7 g/dL (3.4-5.0); TOTAL BILIRUBIN 0.4 mg/dL (0.2-1.0); TOTAL PROTEIN 7.4 g/dL (6.4-8.2)
[2019-11-12 23:29] VITALS: BP 183/97
--- NOTE | 2019-11-13 05:44 | EKG ---
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
== END 2019-11-12 23:45 | disposition home or self-care (01) ==
LOC: ER 22:31
DX: R00.2 Palpitations (principal); T46.7X5A Adverse effect of peripheral vasodilators, initial encounter; R00.0 Tachycardia, unspecified; E11.9 Type 2 diabetes mellitus without complications; Y92.89 Other specified places as the place of occurrence of the external cause
CPT/HCPCS: 36415; 80053; 85025; 93005; 99284; J7030

== ENCOUNTER 2020-04-05 07:02 | Emergency (ER) | payer SELFPAY ==
[~2020-04-05] VITALS: Ht 170.2 cm; Wt 95.0 kg
--- NOTE | 2020-04-05 07:37 | PHYS DOC ---
Past Medical History Past Medical History: Diabetes-Type II Additional Past Medical Histor: BORDERLINE HTN Past Surgical History: No Surgical History Smoking Status: Current Some Day Smoker Alcohol Use: Occasionally Drug Use: None General Adult EDM: Chief Complaint: Congestion HPI: HPI: Patient is a 39 year old male who presented to ER today for evaluation of fever chills, sore throat, cough since 2 days ago. Patient works at a [employer], he was tested negative for COVID- 19 on last . Patient denies any headache, no abdominal pain, no nausea or vomiting. Patient denies any chest pain, no trouble breathing. Review of Systems: Review of Systems: Constitutional: Positive for fever or chills. [] Eyes: Denies change in visual acuity. [] HENT: Positive for nasal congestion and sore throat. [] Respiratory: Positive for cough , no shortness of breath. [] Cardiovascular: Denies chest pain or edema. [] GI: Denies abdominal pain, nausea, vomiting, bloody stools or diarrhea. [] : Denies dysuria. [] Musculoskeletal: Denies back pain or joint pain. [] Integument: Denies rash. [] Neurologic: Denies headache, focal weakness or sensory changes. [] Endocrine: Denies polyuria or polydipsia. [] Lymphatic: Denies swollen glands. [] Psychiatric: Denies depression or anxiety. [] Heart Score: Risk Factors: Risk Factors: DM, Current or recent (<one month) smoker, HTN, HLP, family history of CAD, obesity. Risk Scores: Score 0 - 3: 2.5% MACE over next 6 weeks - Discharge Home Score 4 - 6: 20.3% MACE over next 6 weeks - Admit for Clinical Observation Score 7 - 10: 72.7% MACE over next 6 weeks - Early Invasive Strategies Allergies: Allergies: Allergies Coded Allergies Type Severity Reaction Last Updated Verified No Known Drug Allergies 12/09/15 No Physical Exam: PE: Constitutional: Well developed, well nourished, no acute distress, non-toxic appearance. [] HENT: Normocephalic, atraumatic, bilateral external ears normal, oropharynx moist and erythema, no oral exudates, nose normal. [] Eyes: PERRLA, EOMI, conjunctiva normal, no discharge. [] Neck: Normal range of motion, no tenderness, supple, no stridor. [] Cardiovascular:Heart rate regular rhythm, no murmur [] Lungs & Thorax: Bilateral breath sounds clear to auscultation [] Abdomen: Bowel sounds normal, soft, no tenderness, no masses, no pulsatile masses. [] Skin: Warm, dry, no erythema, no rash. [] Back: No tenderness, no CVA tenderness. [] Extremities: No tenderness, no cyanosis, no clubbing, ROM intact, no edema. [] Neurologic: Alert and oriented X 3, normal motor function, normal sensory function, no focal deficits noted. [] Psychologic: Affect normal, judgement normal, mood normal. [] Current Patient Data: Vital Signs: Vital Signs Date Time Temp Pulse Resp B/P (MAP) Pulse Ox O2 Delivery O2 Flow Rate FiO2 04/05/20 07:11 99.6 107 18 141/81 (101) 97 Room Air 99.6 EKG: EKG: [] Radiology/Procedures: Radiology/Procedures: [][facility] [address] [place], [place] [id number] IMAGING REPORT Signed PATIENT: FLORENCE SALGUERO ACCOUNT: [id number] : 1980 LOCATION: ER AGE: 39 SEX: M EXAM STATUS: PRE ER ORD. PHYSICIAN: LUCIO MUSE DO REASON: cough, congestion PROCEDURE: CHEST AP ONLY CHEST AP ONLY 04/05/2020 7:22 AM INDICATION: Cough and congestion COMPARISON: 11/03/2019 TECHNIQUE: Portable frontal view of the chest is provided. FINDINGS: The cardiomediastinal silhouette is within normal limits. Lungs are clear. There are no significant pleural effusions. There is no pulmonary vascular congestion. No pneumothorax. No suspicious osseous abnormality. IMPRESSION: There is no acute cardiopulmonary process. Electronically signed by: Andres Kiran MD (04/05/2020 7:59 AM) [id number] DICTATED and SIGNED BY: ANDRES KIRAN MD DATE: 04/05/20 0759 Course & Med Decision Making: Course & Med Decision Making Pertinent Labs and Imaging studies reviewed. (See chart for details) [] Dragon Disclaimer: Dragon Disclaimer: This electronic medical record was generated, in whole or in part, using a voice recognition dictation system. Departure Departure Impression: Primary Impression: Viral syndrome Additional Impression: Suspected 2019-nCoV infection Disposition: 01 HOME, SELF-CARE Condition: STABLE Referrals: NO PCP (PCP) FOLLOW UP WITH YOUR DOCTOR NEEDED Patient Instructions: Viral Syndrome Additional Instructions: You have been tested for or diagnosed with COVID-19. It is an infection caused by a new type of coronavirus. COVID-19 will cause cold-like or mild flu symptoms in most. It can cause more severe symptoms like problems breathing in some. There is no treatment for COVID-19. The body will clear the infection over time. Self-care will help to ease discomfort. Steps to Take: Self-Care Rest as needed. Healthy habits may help you feel better. Steps include: Choose healthy foods including fruits and vegetables. Drink water throughout the day. Get plenty of sleep each night. If you smoke, try to quit. It may ease breathing. Avoid alcohol. Keep Others Healthy The virus can spread to others. Droplets are released every time you sneeze or cough. The droplets can get into the mouth, nose, or eyes of people near you and lead to infection. To lower the chances of spreading COVID-19 to others: Stay at home until your doctor has said it is safe to leave. If you tested positive this will mean staying isolated until both of the following are true: At least 7 days have passed since the start of illness. You are free of fever for at least 72 hours without the use of medicine. During this time: - Avoid public areas, events, or transportation. Do not return to work or school until your doctor has said it is safe to do so. - Call ahead if you need to go to a medical center. Let them know you may have COVID-19. It will help them guide you where to go. They may also ask you to wear a facemask when you come to the office. - If you call for emergency medical services, let them know you may have COVID- 19. While at home: - Try to avoid close contact with others. Stay about 6 feet away. - If possible, spend most of your time in a separate room from others. - Use a face mask if you will be in close contact with others such as sharing a room or vehicle. - Have someone wipe down common surfaces in the home. Use household foreign language teacher every day on areas like doorknobs, counters, or sinks. - Cough or sneeze into a tissue. Throw the tissue away right after use. If a tissue is not available, cough or sneeze into your elbow. - Wash your hands often. Wash them after sneezing or coughing. Use soap and water and wash for at least 20 seconds. Alcohol based hand drum cleaner can be used if soap and water is not available. - Do not prepare food for others. Avoid sharing personal items like forks, spoons, or toothbrushes. - Avoid close contact with pets while you are sick. There is no evidence of the virus passing to pets. This is a safety step until more is known about this virus. Isolation can be frustrating. Social interaction can help. Keep in touch with f riends and family through phone and tech options. You can still interact with others in your home, just keep a safe distance of about 6 feet. Follow-up: Your doctors office will check in with you to see if there are any changes in your health. You may be asked to keep track of symptoms to share with them. They will also let you know when you are clear to be in public again. Problems to Look Out For: Contact your doctor if your recovery is not going as you expect. Get emergency care if you have problems such as: - Trouble breathing - Nonstop chest pain or pressure - Changes in awareness, confusion, or problems waking - Lips or face have bluish color - Worsening of symptoms If you think you have an emergency, call for emergency medical services right away. As taken from [facility] Justicifation of Admission Dx: Justifications for Admission: Justification of Admission Dx: N/A LUCIO MUSE DO Apr 05, 2020 07:37
--- NOTE | 2020-04-05 08:02 | RAD ---
CHEST AP ONLY 04/05/2020 7:22 AM INDICATION: Cough and congestion COMPARISON: 11/03/2019 TECHNIQUE: Portable frontal view of the chest is provided. FINDINGS: The cardiomediastinal silhouette is within normal limits. Lungs are clear. There are no significant pleural effusions. There is no pulmonary vascular congestion. No pneumothorax. No suspicious osseous abnormality. IMPRESSION: There is no acute cardiopulmonary process. Electronically signed by: Madai Navarrete MD (04/05/2020 7:59 AM) [id number]
[2020-04-05 09:43] VITALS: BP 132/86
--- NOTE | 2020-04-07 09:43 | NUR ---
IP: Informed pt of negative COVID test. Pt verbalized understanding.
== END 2020-04-05 09:56 | disposition home or self-care (01) ==
LOC: ER 07:02
DX: B34.9 Viral infection, unspecified (principal); Z20.828 Contact with and (suspected) exposure to other viral communicable diseases; E11.9 Type 2 diabetes mellitus without complications; F17.200 Nicotine dependence, unspecified, uncomplicated
CPT/HCPCS: 71045; 87070; 87880; 99284; U0003

== ENCOUNTER 2020-10-11 19:21 | Emergency (ER) | payer SELFPAY ==
[~2020-10-11] VITALS: Ht 167.6 cm; Wt 94.0 kg
[2020-10-11 19:34] VITALS: BP 153/93
[2020-10-11] MEDS ORDERED: DICL50TA2 PO (19:48)
[2020-10-11] MEDS ORDERED: SULF1TAB23 PO (19:48)
[2020-10-11] MEDS ORDERED: MUPI22OI2 TP (19:48)
--- NOTE | 2020-10-11 19:48 | PHYS DOC ---
Past Medical History Past Medical History: Diabetes-Type II Additional Past Medical Histor: BORDERLINE HTN Past Surgical History: No Surgical History Smoking Status: Current Some Day Smoker Alcohol Use: Occasionally Drug Use: None General Adult EDM: Chief Complaint: SKIN RASH/ABSCESS HPI: HPI: Patient is a 40 year old male with history of diabetes type 2 presenting today complaining of an abscess on the back of his scalp, patient noted this 2 days ago. Denies any fever. Review of Systems: Review of Systems: Labs constitutional: Denies fever or chills. [] : Denies dysuria. [] Musculoskeletal: Denies back pain or joint pain. [] Integument: Reports abscess on the back of the head Neurologic: Denies headache, focal weakness or sensory changes. [] Psychiatric: Denies depression or anxiety. [] Heart Score: C/O Chest Pain: No Risk Factors: Risk Factors: DM, Current or recent (<one month) smoker, HTN, HLP, family history of CAD, obesity. Risk Scores: Score 0 - 3: 2.5% MACE over next 6 weeks - Discharge Home Score 4 - 6: 20.3% MACE over next 6 weeks - Admit for Clinical Observation Score 7 - 10: 72.7% MACE over next 6 weeks - Early Invasive Strategies Allergies: Allergies: Allergies Coded Allergies Type Severity Reaction Last Updated Verified No Known Drug Allergies 12/09/15 No Physical Exam: PE: Constitutional: Well developed, well nourished, no acute distress, non-toxic appearance. [] Skin: Posterior occipital with an indurated area roughly 2 x 2 cm, there is an open crusted center. The area is warm tender to touch slightly erythematous. This is from folliculitis, patient would not let me express pus from this region Back: No tenderness, no CVA tenderness. [] Extremities: No tenderness, no cyanosis, no clubbing, ROM intact, no edema. [] Neurologic: Alert and oriented X 3, normal motor function, normal sensory function, no focal deficits noted. [] Psychologic: Affect normal, judgement normal, mood normal. [] EKG: EKG: [] Radiology/Procedures: Radiology/Procedures: [] Course & Med Decision Making: Course & Med Decision Making Pertinent Labs and Imaging studies reviewed. (See chart for details) This is a 40-year-old male patient with folliculitis on posterior scalp. 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 Discharged on Bactroban and cephalexin. Patient was given his RX he stated told the RN " this is bullshit" and he was going to [facility]. Ignacio Disclaimer: Ignacio Disclaimer: This electronic medical record was generated, in whole or in part, using a voice recognition dictation system. Departure Departure Impression: Primary Impression: Folliculitis barbae Disposition: 01 DC HOME SELF CARE/HOMELESS Condition: STABLE Referrals: NO PCP (PCP) follow up with your doctor in 1 week Patient Instructions: Folliculitis-SportsMed Additional Instructions: You have infection on the back of your head. Please apply warm compresses to the area twice a day. Use the prescribed medications as ordered. Come back to the ED at any point symptoms worsen. Please do not shave the back of your head until the infection has cleared up Scripts Diclofenac Potassium (DICLOFENAC POTASSIUM) 50 Mg Tablet 1 TAB PO BID, #20 TAB 0 Refills Prov: AMANDA QUINONEZ APRN 10/11/20 Sulfamethoxazole/Trimethoprim (BACTRIM 400-80 MG TABLET) 1 Each Tablet 1 TAB PO BID for 10 Days, #20 TAB 0 Refills Prov: AMANDA QUINONEZ APRN 10/11/20 Mupirocin (MUPIROCIN OINTMENT) 22 Gm Oint...g. 1 KASEY TP TID for WOUND CARE, #1 EACH Prov: AMANDA QUINONEZ APRN 10/11/20 AMANDA QUINONEZ APRN Oct 11, 2020 19:48
== END 2020-10-11 19:50 | disposition left against medical advice (07) ==
LOC: ER 19:21
DX: L73.8 Other specified follicular disorders (principal); L53.9 Erythematous condition, unspecified; E11.9 Type 2 diabetes mellitus without complications; Z87.891 Personal history of nicotine dependence
CPT/HCPCS: 99283

== ENCOUNTER 2021-03-20 00:34 | Emergency (ER) | payer BC ==
[~2021-03-20] VITALS: Ht 167.6 cm; Wt 90.9 kg
[~2021-03-20 00:34] MED LIST changes: +DICL50TA2 PO; -LISI2.5T PO; +LISI2.5T12 PO; +MUPI22OI2 TP; +SULF1TAB23 PO
[2021-03-20] MEDS: IBUPROFEN 200 MG TABLET. PO ONE ×2 (00:45→01:05)
[2021-03-20] MEDS ORDERED: AMOXICILLIN/K CLAV 875/125MG TABLET. PO ONE (00:45)
[2021-03-20] MEDS: DEXAMETHASONE 4 MG TABLET PO ONE ×2 (00:45→01:05)
[2021-03-20] MEDS ORDERED: CHLO15MO2 PO (00:49)
[2021-03-20] MEDS ORDERED: AMOX1TAB61 PO (00:49)
--- NOTE | 2021-03-20 00:49 | PHYS DOC ---
Past Medical History Past Medical History: Diabetes-Type II Additional Past Medical Histor: BORDERLINE HTN Past Surgical History: No Surgical History Smoking Status: Current Every Day Smoker Alcohol Use: None Drug Use: None General Adult EDM: Chief Complaint: DENTAL PROBLEM HPI: HPI: Patient is a 40-year-old male with past medical history of diabetes mellitus presents with right maxillary molar pain with radiation to right ear. Reports has been ongoing for the past 1 day. Denies any fever or chills. Reports has been using a salt water rinse without improvement. Denies taking any Tylenol or ibuprofen for pain or discomfort. Review of Systems: Review of Systems: Constitutional: Denies fever or chills Eyes: Denies redness or eye pain HENT: Denies nasal congestion or sore throat; reports dental pain and poor dentition Respiratory: Denies cough or shortness of breath Cardiovascular: Denies chest pain or palpitations GI: Denies abdominal pain, nausea, or vomiting : Denies dysuria or hematuria Musculoskeletal: Denies back pain or joint pain Integument: Denies rash or skin lesions Neurologic: Denies headache, focal weakness or sensory changes Complete systems were reviewed and found to be within normal limits, except as documented in this note. Heart Score: C/O Chest Pain: N/A Allergies: Allergies: Allergies Coded Allergies Type Severity Reaction Last Updated Verified No Known Drug Allergies 12/09/15 No Physical Exam: PE: Constitutional: Well developed, well nourished, agitated, non-toxic appearance HENT: Normocephalic, atraumatic, poor dentition throughout, right first maxillary molar with severe dental carry, no drainable abscess appreciated. Tender to palpation., TMs clear bilaterally Eyes: Conjunctiva normal, no discharge Neck: Normal range of motion, supple Lungs & Thorax: No respiratory distress, equal chest rise and fall Abdomen: Soft, no tenderness Skin: Warm, dry, no erythema, no rash Extremities: No tenderness, ROM intact, no edema Neurologic: Alert and oriented X 3, no focal deficits noted Psychologic: Affect agitated, judgment normal EKG: EKG: [] Radiology/Procedures: Radiology/Procedures: [] Course & Med Decision Making: Course & Med Decision Making Nontoxic patient presents with right maxillary dental carry with increased pain x1 day. Symptomatic treatment provided with oral steroid and ibuprofen. Empiric antibiotic initiated. Prescriptions written for antibiotic and Peridex. Plan for patient to be discharged home. Patient stable for discharge with outpatient follow-up with PCP/dentist. Prior to receiving dental instructions as well as prescriptions patient subsequently eloped. Patient had been very disgruntled with nursing staff. Ignacio Disclaimer: Ignacio Disclaimer: This electronic medical record was generated, in whole or in part, using a voice recognition dictation system. Departure Departure Impression: Primary Impression: Dentalgia Additional Impression: Dental caries Disposition: HOME / SELF CARE / HOMELESS Condition: STABLE Referrals: NO PCP (PCP) Patient Instructions: Dental Caries, Toothache-Brief Additional Instructions: Please call and make an appointment to be seen by a dentist for further care. Dental resource numbers provided. May also take [id number] ibuprofen and or Tylenol for pain or discomfort. Scripts Amoxicillin/Potassium Clav (AUGMENTIN 875-125 TABLET) 1 Each Tablet 1 TAB PO BID for 7 Days, #14 TAB Prov: KAREN KATE DO 03/20/21 Chlorhexidine Gluconate (PERIDEX) 15 Ml Mouthwash 15 ML PO BID for 7 Days, #473 ML 0 Refills Prov: KAREN KATE DO 03/20/21 KAREN KATE DO Mar 20, 2021 00:49
[2021-03-20 00:51] VITALS: BP 153/90
== END 2021-03-20 01:10 | disposition home or self-care (01) ==
LOC: ER 00:34
DX: K08.89 Other specified disorders of teeth and supporting structures (principal); K02.9 Dental caries, unspecified; H92.01 Otalgia, right ear; E11.9 Type 2 diabetes mellitus without complications; F17.200 Nicotine dependence, unspecified, uncomplicated
CPT/HCPCS: 99283